=== PATIENT | male | born 1965 | race Caucasian/White ===

== ENCOUNTER 2018-03-05 16:13 | Emergency (ER) | payer OTHER ==
[2018-03-05 16:29] VITALS: BP 155/96; PULSE 74; TEMP 98.1; BMI 24.2
--- NOTE | 2018-03-05 18:41 | PDOC ---
History of Present Illness <Jaret Mauricio - Last Filed: 03/05/18 18:38> - General History Source: Patient Exam Limitations: No Limitations - History of Present Illness Initial Comments: 03/05/18 19:14 The patient is a 52 year old male, with no significant PMH, who presents to the emergency department complaining of flashing light to the left peripheral eye that occurred today. The patient states episode happened today around 3:30- 4: 00 pm accompany with diplopia and slight loss of balance. The patient states he had similar episodes over the past 4 years but does not happen frequently and has not lasted this long. The patient also mentions hes under alot of stress secondary to work. The patient denies chest pain, shortness of breath, headache and dizziness. Denies fever, chills, nausea, vomit, diarrhea and constipation. Denies dysuria, frequency, urgency and hematuria. Allergies: NKDA Past surgical history: None reported Social history: None reported PCP: None reported <Teresa Velázquez - Last Filed: 03/05/18 19:16> - General Chief Complaint: Eye Problem Stated Complaint: LEFT EYE FLASHES Time Seen by Provider: 03/05/18 17:48 Past History - Past Medical History COPD: No GI Disorders: No (FEW POLYPS REMOVED DURING COLONOSCOPY) - Suicide/Smoking/Psychosocial Hx Smoking History: Never smoked Hx Alcohol Use: Yes Drug/Substance Use Hx: No Substance Use Type: Alcohol <Jaret Mauricio - Last Filed: 03/05/18 18:38> <Teresa Velázquez - Last Filed: 03/05/18 19:16> - Past Medical History Allergies/Adverse Reactions: Allergies Allergy/AdvReac Type Severity Reaction Status Date / Time No Known Drug Allergies Allergy Verified 03/05/18 16:15 Home Medications: Ambulatory Orders NK [No Known Home Medication] 01/30/14 Review of Systems - Review of Systems Able to Perform ROS?: Yes Comments:: 03/05/18 19:15 GENERAL/CONSTITUTIONAL: No fever or chills. No weakness. HEAD, EYES, EARS, NOSE AND THROAT: +Flashing light to the left eye. No ear pain or discharge. No sore throat. CARDIOVASCULAR: No chest pain or shortness of breath. RESPIRATORY: No cough, wheezing, or hemoptysis. GASTROINTESTINAL: No nausea, vomiting, diarrhea or constipation. GENITOURINARY: No dysuria, frequency, or change in urination. MUSCULOSKELETAL: No joint or muscle swelling or pain. No neck or back pain. SKIN: No rash NEUROLOGIC: No headache, vertigo, loss of consciousness, or change in strength/ sensation. ENDOCRINE: No increased thirst. No abnormal weight change. HEMATOLOGIC/LYMPHATIC: No anemia, easy bleeding, or history of blood clots. ALLERGIC/IMMUNOLOGIC: No hives or skin allergy. <Teresa Velázquez - Last Filed: 03/05/18 19:16> *Physical Exam - Vital Signs Last Vital Signs Temp Pulse Resp BP Pulse Ox 98.1 F 74 15 155/96 100 03/05/18 16:14 03/05/18 16:14 03/05/18 16:14 03/05/18 16:14 03/05/18 16:14 <Jaret Mauricio - Last Filed: 03/05/18 18:38> - Vital Signs Last Vital Signs Temp Pulse Resp BP Pulse Ox 98.1 F 74 15 155/96 100 03/05/18 16:14 03/05/18 16:14 03/05/18 16:14 03/05/18 16:14 03/05/18 16:14 - Physical Exam Comments: 03/05/18 19:15 GENERAL: +Anxious secondary to stress. Awake, alert, and fully oriented HEAD: No signs of trauma EYES: +Normal fundoscopic exam with good visualization of optic disc and retina.PERRLA, EOMI, sclera anicteric, conjunctiva clear ENT: Auricles normal inspection, hearing grossly normal, nares patent, oropharynx clear without exudates. Moist mucosa LUNGS: Breath sounds equal, clear to auscultation bilaterally. No wheezes, and no crackles HEART: Regular rate and rhythm, normal S1 and S2, no murmurs, rubs or gallops NEUROLOGICAL: Cranial nerves II through XII grossly intact. Normal speech, normal gait SKIN: Warm, Dry, normal turgor, no rashes or lesions noted. <Teresa Velázquez - Last Filed: 03/05/18 19:16> Moderate Sedation - Procedure Monitoring Vital Signs: Procedure Monitoring Vital Signs Temperature 98.1 F 03/05/18 16:14 Pulse Rate 74 03/05/18 16:14 Respiratory Rate 15 03/05/18 16:14 Blood Pressure 155/96 03/05/18 16:14 O2 Sat by Pulse Oximetry (%) 100 03/05/18 16:14 <Jraet Mauricio - Last Filed: 03/05/18 18:38> - Procedure Monitoring Vital Signs: Procedure Monitoring Vital Signs Temperature 98.1 F 03/05/18 16:14 Pulse Rate 74 03/05/18 16:14 Respiratory Rate 15 03/05/18 16:14 Blood Pressure 155/96 03/05/18 16:14 O2 Sat by Pulse Oximetry (%) 100 03/05/18 16:14 <Teresa Velázquez - Last Filed: 03/05/18 19:16> *DC/Admit/Observation/Transfer - Discharge Dispostion Decision to Admit order: No <Jaret Mauricio - Last Filed: 03/05/18 18:38> - Attestations Scribe Attestion: 03/05/18 19:16 Documentation prepared by Teresa Velázquez, acting as medical lab tech instructor for Jaret Swanson MD. <Teresa Velázquez - Last Filed: 03/05/18 19:16> Diagnosis at time of Disposition: Ocular migraine - Discharge Dispostion Disposition: HOME Condition at time of disposition: Improved - Referrals Referrals: Tu Shaw MD [Staff Physician] - Dale Rousseau MD [Staff Physician] - - Patient Instructions Additional Instructions: Possible ocular migraine without headache Tylenol or Motrin, rest in a dark quiet place if symptoms recur Return to ER if symptoms are more severe or prolonged. Otherwise it is important to have a thorough exam by analog device designer and neurologist as recommended.
== END 2018-03-05 18:50 | disposition home or self-care (01) ==
LOC: FER 16:13
DX: G43.809 Other migraine, not intractable, without status migrainosus (principal)
CPT/HCPCS: 99281-25